=== PATIENT | male | born 1955 | race Caucasian/White ===

== ENCOUNTER 2018-06-30 05:22 | Day surgery (SDC) | payer OTHER ==
[~2018-06-30] VITALS: Ht 180.3 cm; Wt 85.0 kg
--- NOTE | ~2018-06-30 | HP ---
PATIENT: JEREMIE GALLARDO MEDICAL RECORD: [id number] ACCOUNT: [id number] LOCATION:[facility] : 59 ADMISSION DATE: 06/30/18 HISTORY AND PHYSICAL EXAMINATION CHIEF COMPLAINT: Garcia esophagus. HISTORY OF PRESENT ILLNESS: The patient is here for surveillance upper endoscopy. Because of his extensive medical history, his EGD is going to be done in the hospital. 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 He also has reflux. He states his reflux is not as bad as it was before now that he is taking omeprazole. He last took his Plavix yesterday morning. SOCIAL HISTORY: Ex-smoker. PAST MEDICAL AND SURGICAL HISTORY: He has got internal defibrillator, coronary artery disease, hypertension, angina, history of multiple myocardial infarctions, history of coronary syndrome, gastroesophageal reflux, Garcia esophagus, history of a partial left nephrectomy. PHYSICAL EXAMINATION: GENERAL: The patient does not appear acutely ill. He does not appear chronically ill. VITAL SIGNS: Reviewed. EARS: External ears appear normal. EYES: Extraocular movements are intact. NECK: Trachea is midline. CHEST: No intercostal retractions. PULMONARY: Nonlabored. No stridor. ABDOMEN: No peritonitis with movement. IMPRESSION: 1. Gastroesophageal reflux. 2. History of Garcia esophagus, in need of surveillance upper endoscopy with biopsies. PLAN: EGD with biopsies. TRANSINT:[id number] Voice Confirmation ID: [id number] DOCUMENT ID: [id number] KASEY CARBAJAL MD at 1241 CC: [id number] DICTATION DATE: 06/30/18929 FISCAL AGENT: 06/30/18 1116 [facility] 06/30/18 [address] [place] [address]
--- NOTE | ~2018-06-30 | OP ---
PATIENT NAME: JEREMIE GALLARDO MEDICAL RECORD: [id number] :59 LOCATION:D[facility] ADMISSION DATE: SURGEON: KASEY CARBAJAL MD DATE OF OPERATION: 06/30/2018 PREOPERATIVE DIAGNOSES: 1. History of Garcia esophagus. 2. Gastroesophageal reflux. POSTOPERATIVE DIAGNOSES: 1. History of Garcia esophagus 2. Gastroesophageal reflux. 3. Moderate hiatal hernia. 4. Perhaps some regression in the Garcia esophagus. 5. Gastritis in the fundus and the prepyloric area. SURGEON: Kasey Carbajal MD ZINC CHLORIDE OPERATOR: None. BLOOD LOSS: Minimal. ANESTHESIA: Topical with IV sedation. COMPLICATIONS: None. The reason for the anesthesia staff being present during the procedure includes the patient's elevated ASA status. ENDOSCOPIC COURSE: The patient was conveyed to the endoscopy suite electively on 06/30/2018. IV sedation was induced by the anesthesia staff. A bite block was inserted. A gastroscope was inserted into the mouth. It was advanced easily into the hypopharynx. The esophagus was easily intubated as were the stomach and duodenum. Upon withdrawal, retroflexed and angulus views were obtained. Antral biopsies were obtained. Multiple distal esophageal biopsies were obtained. The endoscope was then withdrawn under direct vision. There is no need for the patient to follow up with me in the office unless he develops a complication related to this operative procedure. He may have some mild hematemesis as he did not have his Plavix discontinued. I will plan for his next surveillance upper endoscopy with biopsies to take place in 2 years. TRANSINT:[id number] Voice Confirmation ID: [id number] DOCUMENT ID: [id number] KASEY CARBAJAL MD at 1240 CC: MARTIN SERNA MD, TIM BANKS MD, GLENN TERAN MD [id number] COLIN CORLEY DICTATION DATE: 06/30/18 1011 INNER TUBE TUBER MACHINE OPERATOR: 06/30/18 1051 [facility] 06/30/[address] [address]
[2018-06-30] MEDS ORDERED: BAYER CHEWABLE81 MG PO (07:10)
[2018-06-30] MEDS ORDERED: PLAVIX75 MG PO (07:10)
[2018-06-30] MEDS ORDERED: PACERONE200 MG PO (07:10)
[2018-06-30] MEDS ORDERED: PEPCID20 MG PO (07:11)
[2018-06-30] MEDS ORDERED: LASIX40 MG PO (07:11)
[2018-06-30] MEDS ORDERED: ZESTRIL10 MG PO (07:11)
[2018-06-30] MEDS ORDERED: LOPRESSOR25 MG PO (07:12)
[2018-06-30] MEDS ORDERED: OMEPRAZOLE40 MG PO (07:13)
[2018-06-30] MEDS ORDERED: ZOCOR10 MG PO (07:13)
[2018-06-30] MEDS ORDERED: NITROQUICK0.4 MG SL (07:13)
[2018-06-30 07:20] LABS: HEMATOCRIT 43.6 % (42.0-54.0); HEMOGLOBIN 14.5 g/dL (13.5-17.5); MCH 32.5 pg (26.0-34.0); MCHC 33.3 g/dL (31.0-37.0); MCV 97.8 fL (80.0-100.0); MEAN PLATELET VOLUME 10.9 fL (7.4-10.4); RBC 4.46 10x6/uL (4.20-6.10); RDW 13.8 % (11.5-14.5); WBC 7.9 10x3/uL (4.8-10.8)
[2018-06-30 07:21] VITALS: BP 122/82; Ht 180.3 cm; Wt 85.0 kg
== END 2018-06-30 11:07 | disposition home or self-care (01) ==
LOC: D.OPS 05:22
PROVIDERS: Anesthesiology
DX: K22.70 Barrett's esophagus without dysplasia (principal); K44.9 Diaphragmatic hernia without obstruction or gangrene; K21.9 Gastro-esophageal reflux disease without esophagitis; K29.70 Gastritis, unspecified, without bleeding; Z87.891 Personal history of nicotine dependence; Z95.810 Presence of automatic (implantable) cardiac defibrillator; I25.10 Atherosclerotic heart disease of native coronary artery without angina pectoris; I10 Essential (primary) hypertension; I25.2 Old myocardial infarction; Z79.02 Long term (current) use of antithrombotics/antiplatelets; Z90.5 Acquired absence of kidney; Z01.812 Encounter for preprocedural laboratory examination

== ENCOUNTER 2020-01-15 19:16 | Inpatient (IN) | payer MEDICAID ==
[2020-01-15] VITALS (8 sets, daily range): BP systolic 96–123; BP diastolic 43–77
[~2020-01-15] VITALS: Ht 180.3 cm; Wt 83.0 kg
--- NOTE | ~2020-01-15 | OP ---
PATIENT NAME: JEREMIE GALLARDO MEDICAL RECORD: [id number] :59 LOCATION:D.M2 D.0 ADMISSION DATE:01/15/20 SURGEON: GLENN STOLL MD DATE OF OPERATION: 01/17/2020 PROCEDURES: 1. PTCA stent left circumflex. 2. PTCA stent LAD. 3. IFR. 4. Selective coronary angiography. INDICATION: Angina and coronary artery disease. PROCEDURE PERFORMED: After informed consent was obtained, detailed explanation of risks, benefits as well as alternative therapies, the patient elected to proceed with angiogram and angioplasty. The right femoral area was prepped and draped in normal sterile fashion. Right femoral artery was cannulated via modified Seldinger technique with placement of 6-Turkish sheath. All catheters exchanged through this sheath. FINDINGS: The left anterior descending has a 70% stenosis after the previously placed stents. IFR is abnormal. There is a stent with a 3.5 x 8 mm Warren. Result was 0% residual stenosis. PTCA STENT OF THE LEFT CIRCUMFLEX ARTERY: There is 90% stenosis in the mid circumflex. It was addressed with a 2.5 x 15 mm Warren. Result was 0% residual stenosis. OVERALL IMPRESSION: Successful PTCA stent of the LAD and circumflex going from 75% to 90% initial stenosis to 0% residual. TRANSINT:[id number] Voice Confirmation ID: [id number] DOCUMENT ID: [id number] GLENN STOLL MD CC: [id number] DICTATION DATE: 01/17/20 1605 ADVERTISING MATERIAL DISTRIBUTOR: 01/18/20 0358 ADM IN [facility] [address] [place] [address]
--- NOTE | ~2020-01-15 | EC ---
PATIENT:JEREMIE GALLARDO DATE OF SERVICE: 01/15/20 SEX: M MEDICAL RECORD: [id number] DATE OF : 59 LOCATION:D.M2 D.212 AGE OF PATIENT: 64 ADMISSION DATE: 01/15/20 REFERRING PHYSICIAN: INTERPRETING PHYSICIAN: GLENN NAGEL MD ECHOCARDIOGRAM REPORT ECHO CHARGES 4 ECHO COMPLETE Date: 01/16/20 CLINICAL DIAGNOSIS: DCM ECHOCARDIOGRAPHIC MEASUREMENTS (adult normal given) AC root (d.<3.7cm) 3.5 cm LV Septum d (<1.2 cm> 1.2 cm Valve Excursion 2.0 cm LV Septum (systole) 1.5 cm Left Atria (s.<4.0cm> 4.2 cm LVPW d(<1.2cm) 1.1 cm RV (d.<2.3cm) 3.3 cm LVPW (sytole) 1.2 cm LV diastole(<5.6CM) 6.6 cm MV E-F(>70mm/sec) cm LV systole 5.9 cm LVOT Diameter 2.0 cm MV exc.(>10mm) cm Est.ejection fraction (50-75%) % DOPPLER: LVIT cm/sec A 68 cm/sec E 45 cm/sec LA cm/sec RVSP 23.6 mmHg LVOT 94 cm/sec AOP1/2T m/s Asc. Ao 105 cm/sec RVOT 67 cm/sec RA cm/sec PA 88 cm/sec AV Gradient Peak 4.4 mmHg AV Mean 2.5 mmHg AV Area 2.9 cm MV Gradient Peak 2.5 mmHg MV Mean 0.9 mmHg MV Area cm COMMENTS: Conservation Worker: Haile GHOSH Steward/Stewardess Banquet: 1 Dr. Nagel TAPE# PACS Pericardial Effusion N DATE OF SERVICE: ECHOCARDIOGRAM FINDINGS: 1. Left ventricular chamber size is mildly dilated. Left ventricular systolic function is mildly reduced at 40%. 2. Left atrium is enlarged at 4.2 cm. Right atrium and right ventricular chamber sizes are within normal limits. 3. Valvular structures have normal structure and motion. ECHOCARDIOGRAM REPORT [id number] JEREMIE GALLARDO 4. Doppler interrogation reveals no significant valvular insufficiency or stenosis. 5. No evidence of pericardial effusion or left ventricular thrombus. TRANSINT:[id number] Voice Confirmation ID: [id number] DOCUMENT ID: [id number] GLENN NAGEL MD CC: [id number] DICTATION DATE: 01/16/20 140 PATIENT FINANCIAL COORDINATOR: 01/16/20 1906 ADM IN [facility] [address] [id number]
--- NOTE | ~2020-01-15 | DS ---
PATIENT:JEREMIE GALLARDO :59 MEDICAL RECORD: [id number] DISCHARGE SUMMARY ADMISSION DATE: 01/15/20 DISCHARGE DATE: 01/18/20 DATE OF DISCHARGE: 01/18/2020 DIAGNOSES: 1. Unstable angina. 2. Coronary artery disease. 3. Percutaneous transluminal coronary angioplasty stent right coronary artery, left anterior descending, and left circumflex this admission. 4. Ischemic cardiomyopathy. 5. Ventricular tachycardia. 6. ICD. 7. Hypertension. 8. Hyperlipidemia. HOSPITAL COURSE: Mr. Gallardo presents with unstable anginal symptomatology, found to have 3-vessel coronary artery disease, underwent successful PTCA stent of all 3 vessels, was discharged home with no change in medication as he is already on Plavix and Coumadin. Will follow up with [facility] Cardiology as previously scheduled. TRANSINT:[id number] Voice Confirmation ID: [id number] DOCUMENT ID: [id number] GLENN STOLL MD CC: [id number] DICTATION DATE: 01/18/20 0948 LOG SORTING SUPERVISOR: 01/19/20 0514 DIS IN 01/18/20 [id number] [place] [address]
--- NOTE | ~2020-01-15 | HEMODYNAMI ---
PATIENT:JEREMIE GALLARDO MEDICAL RECORD: [id number] : 59 LOCATION:[facility] D.2120 ADMISSION DATE: 01/15/20 Generatedon:01/17/202016:06 Patient name: JEREMIE GALLARDO Patient #: [id number] SSN: : Date of study: 01/17/2020 Page: Of Hemodynamic Procedure Report Patient Data Patient Demographics Procedure consent was obtained First Name: JEREMIE Gender: Male Last Name: : 1955 Patient #: [id number] Age: 64 year(s) Race: Additional ID: [id number] Contact details Address: [address] [place] [address] State: [place] City: [place] Zip code: [address] Past Medical History Allergies Allergen Reaction Date Comments Reported Other allergy 01/16/2020 Admission Admission Data Admission Date: 01/15/2020 Admission Time: 21:44 Arrival Date: 01/16/2020 Arrival Time: 0:00 Admit Source: Other Insurance Payor: Medicaid Room #: D.2120 [facility] #: [id number] Height (in.): 71 BSA: 2.03 (m2) Height (cm.): 180.34 BMI: 25.58 (kg/m2) Weight (lbs.): 183.38 Weight (kg.): 83.18 Lab Results Lab Result Date: 01/16/2020 Lab Result Time: 0:00 Biochemistry Name Units Result Min Max BUN mg/dl 28 --(----)-* 7 18 CK-MB ng/ml 5.4 --(----)-* 0 3.6 Creatinine mg/dl 2.3 --(----)-* 0.6 1.3 eGFR ml/min 31 *-(----)-- 90 120 NONAFRICAN Troponin l ng/ml 0.028 --(-*--)-- 0 0.06 CBC Name Units Result Min Max Hematocrit % 44.2 --(*---)-- 42 54 Hemoglobin g/dl 14.1 --(*---)-- 13.5 17.5 Procedure Procedure Types Cath Procedure Diagnostic Procedure FFR/IVUS FFR Initial Sedation Charges Moderate Sedation up to 15 minutes PCI Procedure Coronary Stent Coronary Stent Initial x2 Hemochron ACT Test Procedure Description Procedure Date Procedure Date: 01/17/2020 Procedure Start Time: 15:50 Procedure End Time: 16:03 Procedure Staff Name Function Tex Nagel MD Performing Physician Harika Munoz RT Monitor Radha Busch RT Scrub Angelina Mcdaniel RN Nurse Shira Martinez RN Deportation Officer Procedure Data Cath Procedure Fluoroscopy Diagnostic fluoroscopy Total fluoroscopy Time: 3.5 time: 3.5 min min Diagnostic fluoroscopy Total fluoroscopy dose: 444 dose: 444 mGy mGy Contrast Material Contrast Material Type Amount (ml) Isovue 300 48 Entry Location Entry Primary Successful Side Size Upsize Upsize Entry Closure Succes sful Closure Location (Fr) 1 (Fr) 2 (Fr) Remarks Device Remarks Femoral Right 6 Fr Exoseal artery Short Estimated blood loss: 10 ml Procedure Complications No complications Procedure Medications Medication Administration Route Dosage Oxygen etCO2 Nasal cannula 2 l/min Lidocaine 2% added to field 20 Heparin Flush Bag added to field 2 bags (1000units/500ml NS) 0.9% NaCl I.V. 100 ml/hr Versed I.V. 2 mg Fentanyl I.V. 100 mcg Versed I.V. 2 mg Fentanyl I.V. 100 mcg Heparin Bolus I.V. 4000 units Hemodynamics Rest BSA: 2.03 (m2) O2 Consumption: Estimated: 276.08 (ml/min) O2 Consumption indexed : Estimated:136 (ml/min/m) Pre Cath Intra NCS Post Cath Vital Signs Time Heart Resp SPO2 etCO2 NIBP (mmHg) Rhythm Pain Sedation Rate (ipm) (%) (mmHg) Status Level (bpm) 15:32:24 62 17 100 14.3 125/73(94) NSR 0 (11) 10(A) , No pain 15:36:36 70 18 100 0 126/80(109) NSR 0 (11) 10(A) , No pain 15:40:52 68 14 100 0 115/66(80) NSR 0 (11) 10(A) , No pain 15:45:04 66 16 100 0 116/69(81) NSR 0 (11) 10(A) , No pain 15:49:18 60 10 100 0 106/59(73) NSR 0 (11) 9(A) , No pain 15:53:30 62 16 98 0 104/56(74) NSR 0 (11) 9(A) , No pain 15:57:42 60 16 98 0 98/54(72) NSR 0 (11) 10(A) , No pain 16:01:53 60 8 98 0 102/48(81) NSR 0 (11) 10(A) , No pain Medications Time Medication Route Dose Verified Delivered Reason Notes Effectiveness by by 15:31:24 Oxygen etCO2 2 Tex Buffie used for Nasal l/min Robe Martinez RN procedure cannula 15:31:31 Lidocaine 2% added 20ml Tex Tex for local to vial Robe Nagel MD anesthetic field 15:31:38 Heparin Flush added 2 Tex Tex used for Bag to bags Robe Nagel MD procedure (1000units/500ml field NS) 15:31:51 0.9% NaCl I.V. 100 Tex Buffie Per physician ml/hr Robe Martinez RN 15:43:48 Versed I.V. 2 mg Tex Rafitaie for sedation Robe Martinez RN 15:43:53 Fentanyl I.V. 100 Tex Buffie for sedation mcg Robe Martinez RN 15:48:44 Versed I.V. 2 mg Tex Buffie for sedation Robe Martinez RN 15:48:48 Fentanyl I.V. 100 Tex Ellerie for sedation mcg Robe Martinez RN 15:50:25 Heparin Bolus I.V. 4000 Tex Angelina for verif ied units Robe Mcdaniel anticoagulation with Dr. ROBIN Nagel Procedure Log Time Note 15:13:26 Patient Height : 71 inches 15:13:26 Patient Weight : 183.38 lbs 15:13:30 Diagnostic Cath Status : Elective 15:14:11 ACC Patient presents with Unstable Angina CCS Anginal Class 2--Slight limitation of ordinary activity. 15:14:16 Procedure Status Urgent Heart Cath (IP). 15:14:22 Shira Martinez RN sent for patient. Start room use. 15:14:24 Time tracking: Regular hours (M-F 7:00 - 5:00) 15:16:03 Patient received from Med II to CCL 2 Alert and oriented. Tansferred to table in Supine position. 15:16:06 Signed procedure consent form obtained from patient. 15:16:14 H&P Date Dictated: 01/17/2020 Within 30 days and on chart.. 15:16:16 Pre-procedure instructions explained to patient. 15:16:30 Family in patients room. 15:16:32 Patient NPO since Midnight. 15:16:47 Was the patient premedicated? Yes 15:16:48 Is patient on blood thinner?Yes 15:16:51 ACC The patient was administered the following blood thiners within the last 24 hours: ACCPlavix 15:18:27 Patient diabetic? No. 15:18:29 Snore? Yes 15:18:31 Sleep apnea? No 15:18:37 Dentures? No ? 15:18:41 Patient pain scale 0/10 ?. 15:18:49 IV patent on arrival in left forearm with 0.9% NaCl at O. 15:18:57 Lab results completed and on chart. 15:19:03 Risk of Mortality: 2.5 15:19:07 Risk of blood transfusion: .1 15:19:11 Risk of DALTON: 3.6 15:31:12 Vital chart was started 15:31:24 Oxygen 2 l/min etCO2 Nasal cannula was administered by Shira Martinez RN; used for procedure; Verbal order read back and verified. 15:31:31 Lidocaine 2% 20ml vial added to field was administered by Tex Nagel MD; for local anesthetic; Verbal order read back and verified. 15:31:38 Heparin Flush Bag (1000units/500ml NS) 2 bags added to field was administered by Tex Nagel MD; used for procedure; Verbal order read back and verified. 15:31:51 0.9% NaCl 100 ml/hr I.V. was administered by Shira Martinez RN; Per physician; Verbal order read back and verified. 15:35:19 Right groin area was prepped with chlora-prep and draped in sterile fashion 15:35:19 Alarms reviewed by R. N. 15:35:23 Sharps counted by scrub and verified by R.N. 15:42:05 Physician arrived 15:42:06 --------ALL STOP TIME OUT------ 15:42:07 Final Timeout: patient, procedure, and site verified with staff and physician. All members of the team are in agreement. 15:42:11 Right groin site verified by team. 15:42:16 Fire Safety Assessment: A--An alcohol-based skin anteseptic being used preoperatively., C--Open oxygen or nitrous oxide is being used., D--An ESU, laser, or fiber-optic light is being used. 15:42:20 Physical assessment completed. ASA score P 3 - A patient with severe systemic disease as per Tex Nagel MD. 15:42:25 3b) 30-44 Moderately reduced kidney function. 15:42:35 Maximum allowable contrast dose (3.7 X eGFR X 0.75)81 ml. 15:42:40 Sedation plan: IV Moderate Sedation Medication:Versed, Fentanyl 15:42:46 Use device set Femoral Dx 15:42:47 ACIST Syringe (12432) opened to sterile field. 15:42:48 Bag Decanter (2002S) opened to sterile field. 15:42:49 Medline Cath Pack ([id number]) opened to sterile field. 15:42:50 ACIST Hand Control (90750) opened to sterile field. 15:42:51 ACIST Manifold (27190) opened to sterile field. 15:42:56 EMERALD Guide Wire (051-525) opened to sterile field. 15:43:48 Versed 2 mg I.V. was administered by Shira Martinez RN; for sedation; Verbal order read back and verified. 15:43:53 Fentanyl 100 mcg I.V. was administered by Shira Martinez RN; for sedation; Verbal order read back and verified. 15:46:34 INFLATOR Merit BasixCompak (ET5866) opened to sterile field. 15:46:35 Ocilla Verrata Plus pressure wire (52532B) opened to sterile field. 15:46:36 SHEATH 6FR [place] (MNJ590) opened to sterile field. 15:46:46 GUIDE 6FR XBLAD 4.0 catheter ([id number]) opened to sterile field. 15:48:44 Versed 2 mg I.V. was administered by Shira Martinez RN; for sedation; Verbal order read back and verified. 15:48:48 Fentanyl 100 mcg I.V. was administered by Shira Martinez RN; for sedation; Verbal order read back and verified. 15:50:07 Procedure started. 15:50:07 Full Disclosure recording started 15:50:10 Local anesthetic to right femoral artery with Lidocaine 2% by Tex Nagel MD.INITIAL ACCESS ONLY 15:50:19 A 6 Fr Short sheath was inserted into the Right Femoral artery 15:50:25 Heparin Bolus 4000 units I.V. was administered by Angelina Mcdaniel RN; for anticoagulation; verified with Dr. Nagel Verbal order read back and verified. 15:50:45 6 Fr xblad4 guide catheter was inserted over the wire 15:51:01 FFR/IFR wire advanced. 15:51:41 Zero performed for pressure channel P1 15:51:49 Zero performed for pressure channel P1 15:54:34 Wire advanced across lesion. 15:54:42 mLAD lesion measured at .83 with IFR 15:55:01 Pre PCI Site: [place] mLAD has 75% stenosis. 15:55:57 Place stent Inflation Number: 1 A NORBERT RX 3.5 x 08 stent ([id number]) was prepped and advanced across the Mid LAD 75. The stent was deployed at 13 KARO for 0:01 (min:sec) 0. 15:56:42 Wire removed. 15:56:53 Wire redirected to CX. 15:58:04 Pre PCI Site: [place] mCirc has 90% stenosis. 15:59:06 Place stent Inflation Number: 1 A NORBERT RX 2.5 x 15 stent ([id number]) was prepped and advanced across the Mid CX 90. The stent was deployed at 17 KARO for 0:06 (min:sec) 0. 15:59:26 EXOSEAL 6Fr (EX600) opened to sterile field. 15:59:32 Wire removed. 15:59:33 Guide catheter removed. 15:59:46 Sheath removed intact; hemostasis achieved with Exoseal to the Right Femoral artery. 15:59:49 Procedure ended.(Physican Out) 16:00:22 Fluoroscopy time 03.50 minutes. 16:00:26 Fluoroscopy dose: 444 mGy 16:00:26 Flurop Dose total: 444 16:00:30 Dose Area Product 60237 mGy/cm. 16:00:35 Contrast amount:Isovue 300 48ml. 16:00:38 Maximum allowable dose exceeded? No. 16:00:38 Sharps counted by scrub and verified by R.N. 16:00:45 Insertion/operative site no bleeding no hematoma. 16:00:48 Post right femoral artery:stable 16:00:52 Post Procedure Pulses reassessed and unchanged 16:00:55 Post-procedure physical assessment completed. ASA score P 3 - A patient with severe systemic disease as per Tex Nagel MD. 16:00:58 Post procedure rhythm: unchanged. 16:01:01 Estimated blood loss: 10 ml 16:01:02 Post procedure instruction explained to patient.Patient verbalizes understanding. 16:02:43 Procedure type changed to Cath procedure, Diagnostic procedure, FFR/IVUS, FFR Initial, Sedation Charges, Moderate Sedation up to 15 minutes, PCI procedure, Coronary Stent, Coronary Stent Initial x2, Hemochron ACT Test 16:02:45 Procedure and supply charges have been captured, reviewed, submitted and are correct. 16:03:21 ACT drawn and resulted at 295 seconds. (normal therapeutic range 180-240 seconds). 16:03:33 Procedure Complication : No complications 16:03:36 Vital chart was stopped 16:03:40 [facility] Findings: MVD- PCI performed (see procedure note) 16:03:42 Operative report dictated upon procedure completion. 16:03:43 See physician's report for complete and final results. 16:03:47 Report given to Pre/Post Procedure Room. 16:03:52 Patient transfered to [facility] with Bed. 16:03:54 Procedure ended. 16:03:54 Full Disclosure recording stopped 16:04:00 End room use (Document Last) 16:04:05 ACC-PCI Only Patient was given prescriptions, or instructed by Tex Nagel MD to start/continue the following medications upon discharge: Plavix Intervention Summary Intervention Notes Time ActionType Lesion and Equipment Used Action# Pressure Duration Attributes 15:55:57 Place stent Mid LAD NORBERT RX 3.5 x 1 13 00:01 08 stent ([id number]) 15:59:06 Place stent Mid CX NORBERT RX 2.5 x 1 17 00:07 15 stent ([id number]) Device Usage Item Name Manufacture Quantity Catalog Hospital Part Current Minimal Lot# / Number Charge Number Stock Stock Serial# Code ACIST Syringe Acist 1 57384 539567 498426 [id number] 20 (98380) Medical Systems Inc Bag Decanter Microtek 1 448206 12318 988532 5 () Medical Inc. Medline Cath Medline 1 [id number] 394741 16749 573301 5 Pack ([id number]) ACIST Hand Acist 1 39964 412297 707941 309194 5 Control Medical (20524) Systems Inc ACIST Manifold Acist 1 19021 605610 135954 927868 5 (62812) Medical Systems Inc EMERALD Guide Cardinal 1 502455 675682 163746 533533 5 Wire (502455) Health INFLATOR Merit Merit 1 PJ9418 699824 961792 466188 15 SnapSense (TG0029) Ocilla Ocilla 1 20298U 199419 260274481 783375 5 Verrata Plus pressure wire (37433Q) SHEATH 6FR Terumo 1 VDX949 156123 765531 809438 40 [place] (CBA916) GUIDE 6FR Cardinal 1 [id number] 060477 527896 039693 3 XBLAD 4.0 Health catheter ([id number]) NORBERT RX 3.5 x Medtronic 1 [id number] 733501 6432406 086287 5 [id number] 08 stent ([id number]) NORBERT RX 2.5 x Medtronic 1 [id number] 423156 0090107 175828 5 [id number] 15 stent ([id number]) EXOSEAL 6Fr Cardinal 1 EX600 334553 819974 287309 10 (EX600) Health Signature Audit [place] Stage Time Signature Unsigned Intra-Procedure 01/17/2020 Harika Munoz 4:04:29 PM RT(R) Intra-Procedure 01/17/2020 Angelina Mcdaniel 4:05:38 PM RN Intra-Procedure 01/17/2020 Tex Nagel 4:06:07 PM Signatures Performing Physician : Signature : Tex Nagel MD Date : Time : Monitor : Harika Alexander Signature : RT Date : Time : Nurse : Angelina Mcdaniel RN Signature : Date : Time : [address] [place] [address]
--- NOTE | ~2020-01-15 | HEMODYNAMI ---
PATIENT:JEREMIE GALLARDO MEDICAL RECORD: [id number] : 59 LOCATION:[facility] D.2120 ADMISSION DATE: 01/15/20 Generatedon:01/16/202015:44 Patient name: JEREMIE GALLARDO Patient #: [id number] SSN: : Date of study: 01/16/2020 Page: Of Hemodynamic Procedure Report Patient Data Patient Demographics Procedure consent was obtained First Name: JEREMIE Gender: Male Last Name: : 1955 Patient #: [id number] Age: 64 year(s) Race: Additional ID: [id number] Contact details [address]: [address] [place] [address] State: [place] City: [place] Zip code: [address] Past Medical History Allergies Allergen Reaction Date Comments Reported Other allergy 01/16/2020 Admission Admission Data Admission Date: 01/15/2020 Admission Time: 21:44 Arrival Date: 01/16/2020 Arrival Time: 0:00 Admit Source: Other Insurance Payor: Medicaid Room #: D.2120 [facility] #: [id number] Height (in.): 71 BSA: 2.03 (m2) Height (cm.): 180.34 BMI: 25.58 (kg/m2) Weight (lbs.): 183.38 Weight (kg.): 83.18 Lab Results Lab Result Date: 01/16/2020 Lab Result Time: 0:00 Biochemistry Name Units Result Min Max BUN mg/dl 28 --(----)-* 7 18 CK-MB ng/ml 5.4 --(----)-* 0 3.6 Creatinine mg/dl 2.3 --(----)-* 0.6 1.3 eGFR ml/min 31 *-(----)-- 90 120 NONAFRICAN Troponin l ng/ml 0.028 --(-*--)-- 0 0.06 CBC Name Units Result Min Max Hematocrit % 44.2 --(*---)-- 42 54 Hemoglobin g/dl 14.1 --(*---)-- 13.5 17.5 Procedure Procedure Types Cath Procedure Diagnostic Procedure [facility] w/Coronaries FFR/IVUS FFR Initial Sedation Charges Moderate Sedation up to 15 minutes PCI Procedure Coronary Stent Coronary Stent Initial Hemochron ACT Test Procedure Description Procedure Date Procedure Date: 01/16/2020 Procedure Start Time: 15:24 Procedure End Time: 15:43 Procedure Staff Name Function Tex Nagel MD Performing Physician Mercedes Chand RT Monitor Aida Skinner RT Scrub Shira Martinez RN Nurse Indication Chest pain Procedure Data Cath Procedure Fluoroscopy Diagnostic fluoroscopy Total fluoroscopy Time: 4 time: 4 min min Diagnostic fluoroscopy Total fluoroscopy dose: 536 dose: 536 mGy mGy Contrast Material Contrast Material Type Amount (ml) Isovue 370 65 Entry Location Entry Primary Successful Side Size Upsize Upsize Entry Closure Succes sful Closure Location (Fr) 1 (Fr) 2 (Fr) Remarks Device Remarks Femoral Right 6 Fr Exoseal artery Short Estimated blood loss: 10 ml Diagnostic catheters Device Type Used For End Catheter Placement MULTIPACK Pigtail 5 Fr Procedure catheter MULTIPACK JL 4.0 5Fr Procedure catheter MULTIPACK 3DRC 5Fr Procedure catheter Procedure Complications No complications Procedure Medications Medication Administration Route Dosage Oxygen etCO2 Nasal cannula 2 l/min Lidocaine 2% added to field 20 Heparin Flush Bag added to field 2 bags (1000units/500ml NS) 0.9% NaCl I.V. 50 ml/hr Bumex 0.5 mg/hr Plavix P.O. 75 mg Versed I.V. 1 mg Fentanyl I.V. 50 mcg Versed I.V. 1 mg Fentanyl I.V. 50 mcg Heparin Bolus I.V. 4000 units Bumex 0.5 mg/hr Hemodynamics Rest BSA: 2.03 (m2) HGB: 14.1 (g/dl) O2 Consumption: Estimated: 236.78 (ml/min) O2 Co nsumption indexed: Estimated:116.64 (ml/min/m) Heart Rate: 69 (bpm) Snapshots Pre Cath Intra NCS Post Cath Vital Signs Time Heart Resp SPO2 etCO2 NIBP (mmHg) Rhythm Pain Sedation Rate (ipm) (%) (mmHg) Status Level (bpm) 15:11:44 67 18 94 0 114/71(106) NSR 0 (11) 10(A) , No pain 15:15:56 64 19 91 11.3 108/62(79) NSR 0 (11) 10(A) , No pain 15:20:12 65 14 94 8.3 99/49(70) NSR 0 (11) 10(A) , No pain 15:24:22 62 11 96 9.8 91/54(68) NSR 0 (11) 9(A) , No pain 15:28:32 62 13 96 12.1 92/52(68) NSR 0 (11) 9(A) , No pain 15:32:44 60 12 97 25.7 99/47(77) NSR 0 (11) 9(A) , No pain 15:37:00 63 13 95 24.2 90/44(65) NSR 0 (11) 9(A) , No pain 15:41:12 63 13 95 27.9 85/44(63) NSR 0 (11) 10(A) , No pain Medications Time Medication Route Dose Verified Delivered Reason Note s Effectiveness by by 15:14:26 Oxygen etCO2 2 Tex Buffie used for Nasal l/min Robe Martinez RN procedure cannula 15:14:33 Lidocaine 2% added to 20ml Tex Tex for local field vial Robe Nagel MD anesthetic 15:14:42 Heparin Flush added to 2 Etx Tex used for Bag field bags Robe Nagel MD procedure (1000units/500ml NS) 15:14:52 Bumex I.V.P.B. 0.5 Tex Buffie Per physician from med mg/hr Robe Martinez RN floor infusing 15:14:52 0.9% NaCl I.V. 50 Tex Buffie Per physician ml/hr Robe Martinez RN 15:15:22 Plavix P.O. 75 mg Tex Buffie for Robe Martinez RN antiplatelet therapy 15:20:42 Versed I.V. 1 mg Tex Buffie for sedation Robe Martinez RN 15:20:47 Fentanyl I.V. 50 Tex Buffie for sedation mcg Robe Martinez RN 15:29:40 Versed I.V. 1 mg Tex Buffie for sedation Robe Martinez RN 15:29:43 Fentanyl I.V. 50 Tex Buffie for sedation mcg Robe Martinez RN 15:32:06 Heparin Bolus I.V. 4000 Tex Silva for units Robe Martinez RN anticoagulation 15:34:21 Bumex I.V.P.B. 0.5 Tex Silva Per physician disc ontinued mg/hr Robe Martinez RN per dr nagel. Procedure Log Time Note 14:57:29 Shira Martinez RN sent for patient. Start room use. 14:58:51 Informed consent obtained and on chart 14:59:11 Diagnostic Cath Status : Urgent 14:59:24 Admit Source: Other 14:59:27 Procedure Status Urgent Heart Cath (IP). 14:59:31 Time tracking: Call back (After hours or weekends) 14:59:35 Plan of Care:Hemodynamics will remain stable., Cardiac rhythm will remain stable., Comfort level will be maintained., Respiratory function will remain adequate., Patient/ family verbilizes understanding of procedure., Procedure tolerated without complication., Recovers from procedure without complications.. 15:01:50 Indication : Chest pain 15:01:58 Patient received from Med II to CCL 1 Alert and oriented. Tansferred to table in Supine position. 15:01:59 Warm blankets applied, and joe hugger turned on for patient comfort. 15:01:59 Correct patient and procedure confirmed by team. 15:02:00 ECG and BP/O2 sat monitors applied to patient. 15:02:14 H&P Date Dictated: 01/15/2020 Within 30 days and on chart.. 15:02:17 Pre-procedure instructions explained to patient. 15:02:18 Pre-procedure instructions explained to patient. 15:02:20 Pre-op teaching completed and patient verbalized understanding. 15:02:34 Family unavailable. 15:02:45 Patient NPO since Midnight. 15:02:55 Patient allergic to Other allergy 15:02:58 Is the patient allergic to Iodine/contrast media? No. 15:03:01 Was the patient premedicated? No 15:03:32 Is patient on blood thinner?No 15:03:37 ACC The patient was administered the following blood thiners within the last 24 hours: ACCPlavix 15:03:40 Patient diabetic? No. 15:03:43 If diabetic: On Metformin? N/A 15:03:49 ----Pre-sedation anethsthesia assessment.---- 15:03:52 Previous problem with sedation/anesthesia? No ? 15:03:54 Snore? Yes 15:03:55 Sleep apnea? No 15:03:57 Deviated septum? No 15:03:58 Opens mouth fully? Yes 15:03:59 Sticks out tongue? Yes 15:04:13 Airway obstruction? Yes fluid on lungs 15:04:22 Dentures? No ? 15:04:27 Patient pain scale 0/10 ?. 15:09:25 Risk of Mortality: 2.5 15::28 Risk of blood transfusion: .1 15::31 Risk of DALTON: 3.6 15::34 Right groin area was prepped with chlora-prep and draped in sterile fashion 15::35 Alarms reviewed by R. N. 15::35 Sharps counted by scrub and verified by R.N. 15:09:39 Stress Test: no; N/A ? 15::41 Lab results completed and on chart. 15:10:24 Lab Result : BUN 28 mg/dl 15::24 Lab Result : Creatinine 2.3 mg/dl 15:10:24 Lab Result : CK-MB 5.4 ng/ml 15:10:24 Lab Result : Troponin l 0.028 ng/ml 15:10:24 Lab Result : eGFR NONAFRICAN 31 ml/min 15:10:24 Lab Result : Hemoglobin 14.1 g/dl 15:10:24 Lab Result : Hematocrit 44.2 % 15:10:29 Vital chart was started 15:10:30 Baseline sample Acquired. 15:: Full Disclosure recording started 15:10:35 Rhythm: sinus rhythm 15:10:45 IV patent on arrival in left antecubital with 0.9% NaCl at [facility]. 15:14:26 Oxygen 2 l/min etCO2 Nasal cannula was administered by Shira Martinez RN; used for procedure; Verbal order read back and verified. 15:14:33 Lidocaine 2% 20ml vial added to field was administered by Tex Nagel MD; for local anesthetic; Verbal order read back and verified. 15:14:42 Heparin Flush Bag (1000units/500ml NS) 2 bags added to field was administered by Tex Nagel MD; used for procedure; Verbal order read back and verified. 15:14:52 Bumex 0.5 mg/hr I.V.P.B. was administered by Shira Martinez RN; Per physician; from [facility] floor infusing Verbal order read back and verified. 15:14:52 0.9% NaCl 50 ml/hr I.V. was administered by Shira Martinez RN; Per physician; Verbal order read back and verified. 15:15:22 Plavix 75 mg P.O. was administered by Shira Martinez RN; for antiplatelet therapy; Verbal order read back and verified. 15:16:22 Arrival Date: 01/16/2020 12:00:00 AM 15:16:31 Patient Height : 71 inches 15:16:36 Patient Weight : 183.38 lbs 15:16:50 Insurance Payor : Medicaid 15:17:06 --------ALL STOP TIME OUT------ 15:17:06 Final Timeout: patient, procedure, and site verified with staff and physician. All members of the team are in agreement. 15:17:08 Right groin site verified by team. 15:17:12 Fire Safety Assessment: A--An alcohol-based skin anteseptic being used preoperatively., C--Open oxygen or nitrous oxide is being used., D--An ESU, laser, or fiber-optic light is being used. 15:17:16 Physical assessment completed. ASA score P 2 - A patient with mild systemic disease as per Tex Nagel MD. 15:17:21 3b) 30-44 Moderately reduced kidney function. 15:17:44 Maximum allowable contrast dose (3.7 X eGFR X 0.75)86 ml. 15:17:49 Sedation plan: IV Moderate Sedation Medication:Versed, Fentanyl 15:18:59 Use device set Femoral Dx 15:19:00 ACIST Syringe (99979) opened to sterile field. 15:19:01 Bag Decanter (2002) opened to sterile field. 15:19:02 Medline Cath Pack ([id number]) opened to sterile field. 15:19:04 ACIST Hand Control (73278) opened to sterile field. 15:19:04 ACIST Manifold (09518) opened to sterile field. 15:19:05 DIAGNOSTIC Multipack 5Fr catheter set (BC3185) opened to sterile field. 15:19:07 EMERALD Guide Wire (989-017) opened to sterile field. 15:19:17 SHEATH 6FR [place] (RJF934) opened to sterile field. 15:20:42 Versed 1 mg I.V. was administered by Shira Martinez RN; for sedation; Verbal order read back and verified. 15:20:47 Fentanyl 50 mcg I.V. was administered by Shira Martinez RN; for sedation; Verbal order read back and verified. 15:24:31 Procedure started. 15:24:35 Local anesthetic to right femoral artery with Lidocaine 2% by Tex Nagel MD.INITIAL ACCESS ONLY 15:25:17 A 6 Fr Short sheath was inserted into the Right Femoral artery 15:26:04 A MULTIPACK Pigtail 5 Fr catheter was advanced over the wire and used for Procedure. 15:26:08 LV gram done using VÁSQUEZ 15:26:13 EF : 40 % 15:26:16 Injector settings: Ml/sec: 5, Volume: 15, 15:26:17 Catheter removed. 15:26:23 A MULTIPACK JL 4.0 5Fr catheter was advanced over the wire and used for Procedure. 15:26:38 LCA angiography performed. 15::42 Injector settings: Ml/sec: 3, Volume: 6, 15:27:12 Catheter removed. 15:27:23 A MULTIPACK 3DRC 5Fr catheter was advanced over the wire and used for Procedure. 15:27:28 RCA angiography performed. 15:27:31 Injector settings: Ml/sec: 3, Volume: 6, 15:27:56 Catheter removed. 15:27:57 Proceeding to intervention. 15:28:03 Use device set TAUFAN PCI 15:28:08 INFLATOR Merit BasixCompak (YR3617) opened to sterile field. 15:28:51 [place] Verrata Plus pressure wire (30745U) opened to sterile field. 15:29:20 GUIDE 6FR AR 2.0 catheter ([id number]) opened to sterile field. 15:29:40 Versed 1 mg I.V. was administered by Shira Martinez RN; for sedation; Verbal order read back and verified. 15:29:43 Fentanyl 50 mcg I.V. was administered by Shira Martinez RN; for sedation; Verbal order read back and verified. 15:29:54 6 Fr AR 2 guide catheter was inserted over the wire 15:29:58 FFR/IFR wire advanced. 15:29:58 Wire advanced across lesion. 15:32:06 Heparin Bolus 4000 units I.V. was administered by Shira Martinez RN; for anticoagulation; Verbal order read back and verified. 15:32:41 RCA lesion measured at .79 with IFR 15:33:20 Pre PCI Site: [place] RCA has 80% stenosis. 15:34:21 Bumex 0.5 mg/hr I.V.P.B. was administered by Shira Martinez RN; Per physician; discontinued per dr nagel. Verbal order read back and verified. 15:34:39 Place stent Inflation Number: 1 A NORBERT RX 3.5 x 38 stent ([id number]) was prepped and advanced across the Mid RCA . The stent was deployed at 21 KARO for 0:00 (min:sec) . 15:34:51 Inflation number: 2 The stent balloon was then re-inflated across the Mid RCA to 17 KARO for 0:00 (min:sec) . 15:35:28 Stent catheter was removed intact over wire. 15:37:14 Place stent Inflation Number: 1 A NORBERT RX 3.5 x 22 stent ([id number]) was prepped and advanced across the Dist RCA . The stent was deployed at 21 KARO for 0:00 (min:sec) . 15:37:55 EXOSEAL 6Fr (EX600) opened to sterile field. 15:38:05 Sheath removed intact; hemostasis achieved with Exoseal to the Right Femoral artery. 15:38:11 Fluoroscopy time 04.00 minutes. 15:38:16 Fluoroscopy dose: 536 mGy 15:38:16 Flurop Dose total: 536 15:38:21 Dose Area Product 91796 mGy/cm. 15:38:23 Procedure ended.(Physican Out) 15:38:51 Contrast amount:Isovue 370 65ml. 15:38:53 Maximum allowable dose exceeded? No. 15:38:54 Sharps counted by scrub and verified by R.N. 15:38:59 Post-op/insertion site Right Femoral artery dressed using a 4 x 4 and Tegaderm. 15:39:06 Post right femoral artery:stable, soft, clean and dry 15:39:07 Post Procedure Pulses reassessed and unchanged 15:39:11 Post procedure: right dorsailis pedis pulse 2+ Normal; easily identifiable; not easily obliterated. 15:39:14 Post-procedure physical assessment completed. ASA score P 2 - A patient with mild systemic disease as per Tex Nagel MD. 15:39:17 Post procedure rhythm: unchanged. 15:39:20 Estimated blood loss: 10 ml 15:39:22 Post procedure instruction explained to patient.Patient verbalizes understanding. 15:39:22 Patient needs reinforcement of post procedure teaching. 15:41:31 Procedure type changed to Cath procedure, Diagnostic procedure, LHC, [facility] w/Coronaries, FFR/IVUS, FFR Initial, Sedation Charges, Moderate Sedation up to 15 minutes, PCI procedure, Coronary Stent, Coronary Stent Initial, Hemochron ACT Test 15:43:15 ACT drawn and resulted at 342 seconds. (normal therapeutic range 180-240 seconds). 15:43:19 Procedure and supply charges have been captured, reviewed, submitted and are correct. 15:43:23 Procedure Complication : No complications 15:43:25 Vital chart was stopped 15:43:27 [facility] Findings: MVD- PCI performed (see procedure note) 15:43:28 Operative report dictated upon procedure completion. 15:43:29 See physician's report for complete and final results. 15:43:31 Report given to [facility]. 15:43:35 Patient transfered to [facility] with Bed. 15:43:44 Procedure ended. 15:43:44 Full Disclosure recording stopped 15:43:52 ACC-PCI Only Patient was given prescriptions, or instructed by Tex Nagel MD to start/continue the following medications upon discharge: Plavix 15:43:54 End room use (Document Last) 15:44:10 End room use (Document Last) 15:44:27 End room use (Document Last) Intervention Summary Intervention Notes Time ActionType Lesion and Equipment Used Action# Pressure Duration Attributes 15:34:39 Place stent Mid RCA NORBERT RX 3.5 x 1 21 00:00 38 stent ([id number]) 15:34:51 Reinflate Mid RCA NORBERT RX 3.5 x 2 17 00:00 stent 38 stent balloon ([id number]) 15:37:14 Place stent Dist RCA NORBERT RX 3.5 x 1 21 00:00 22 stent ([id number]) Device Usage Item Name Manufacture Quantity Catalog Hospital Part Current Minimal Lot# / Number Charge Number Stock Stock Serial# Code ACIST Syringe Acist 1 40910 131695 270075 195678 20 (10669) Medical Systems Inc Bag Decanter Microtek 1 133679 28899 535208 5 () Medical Inc. Medline Cath Medline 1 [id number] 765204 09279 023252 5 Pack ([id number]) ACIST Hand Acist 1 02519 772947 342381 348420 5 Control Medical (02797) Systems Inc ACIST Manifold Acist 1 11303 302831 069448 341115 5 (50366) Medical Systems Inc DIAGNOSTIC Cardinal 1 XH0801 686210 02944 591704 30 Multipack 5Fr Health catheter set (JL4887) EMERALD Guide Cardinal 1 502-455 101016 921127 746488 5 Wire (502-455) Health SHEATH 6FR Terumo 1 DKY937 821124 148049 093420 40 [place] (BWG368) MULTIPACK Cardinal 1 019159 5 Pigtail 5 Fr Health catheter MULTIPACK JL Cardinal 1 042153 5 4.0 5Fr Health catheter MULTIPACK 3DRC Cardinal 1 178131 5 5Fr catheter Health INFLATOR Merit Merit 1 HV6843 042844 572800 524815 15 Double FusionLDS Hospital Medical (MJ6972) [place] 1 90900G 560644 083813188 507461 5 Verrata Plus pressure wire (61141M) GUIDE 6FR AR Medtronic 1 [id number] 472065 05398 064081 1 2.0 catheter (KA9SZ14) NORBERT RX 3.5 x Medtronic 1 [id number] 151549 5669148 968901 5 [id number] 38 stent ([id number]) NORBERT RX 3.5 x Medtronic 1 [id number] 805841 9081855 177336 5 [id number] 22 stent ([id number]) EXOSEAL 6Fr Cardinal 1 EX600 528997 225881 995635 10 (EX600) Health Signature Audit [place] Stage Time Signature Unsigned Intra-Procedure 01/16/2020 Mercedes Chand 3:44:10 PM RT(R) Intra-Procedure 01/16/2020 Shira Martinez RN 3:44:27 PM Intra-Procedure 01/16/2020 Tex Nagel 3:44:46 PM [facility] [address] [place] [address]
[~2020-01-15 19:16] MED LIST: BAYER CHEWABLE81 MG PO; LASIX40 MG PO; LOPRESSOR25 MG PO; NITROQUICK0.4 MG SL; OMEPRAZOLE40 MG PO; PACERONE200 MG PO; PEPCID20 MG PO; PLAVIX75 MG PO; ZESTRIL10 MG PO; ZOCOR10 MG PO
[2020-01-15] MEDS ORDERED: LIPITOR20 MG PO (19:33)
[2020-01-15] MEDS ORDERED: ACETAMINOPHEN325 MG PO (19:34)
[2020-01-15] MEDS ORDERED: COUMADIN2 MG PO (19:34)
[2020-01-15] MEDS ORDERED: FOLIC ACID1 MG PO (19:34)
[2020-01-15] MEDS ORDERED: CLARITIN 10 MG10 MG PO (19:35)
[2020-01-15 20:18] LABS: BASOPHILS 0.3 % (0-2); EOSINOPHILS 0.7 % (0-7); HEMATOCRIT 44.2 % (42.0-54.0); HEMOGLOBIN 14.1 g/dL (13.5-17.5); IMMATURE GRANULOCYTES 0.4 % (0-5); LYMPHOCYTES 14.8 % (15-50); MCH 32.4 pg (26.0-34.0); MCHC 31.9 g/dL (31.0-37.0); MCV 101.6 fL (80.0-100.0); MEAN PLATELET VOLUME 11.2 fL (7.4-10.4); NEUTROPHILS 73.8 % (40-80); PLATELET COUNT 179 10x3/uL (130-400); RBC 4.35 10x6/uL (4.20-6.10); RDW 14.2 % (11.5-14.5); WBC 11.5 10x3/uL (4.8-10.8)
[2020-01-15 20:27] LABS: APTT 31.5 SECONDS (22.8-39.4); INR 1.17 (0.85-1.17); PROTIME 14.9 SECONDS (11.6-15.0)
[2020-01-15 20:33] LABS: CALC OSMOLALITY 290 mosm/kg (275-300); CALCIUM 8.7 mg/dL (8.5-10.1); CARBON DIOXIDE 23.9 mmol/L (21.0-32.0); CHLORIDE - SERUM 109 mmol/L (98-107); CREATININE - SERUM 2.1 mg/dL (0.6-1.3); GLUCOSE 100 mg/dL (74-106); POTASSIUM - SERUM 5.7 mmol/L (3.5-5.1); SODIUM 143 mmol/L (136-145); UREA NITROGEN 30 mg/dL (7-18); eGFR NON AFRICAN AMERICAN 34 mL/min (90-120)
[2020-01-15 20:49] LABS: ALBUMIN 3.3 g/dL (3.4-5.0); ALKALINE PHOSPHATASE 77 U/L (30-120); ALT (SGPT) 81 U/L (10-68); BILIRUBIN - TOTAL 0.49 mg/dL (0.2-1.3); CKMB 5.9 U/L (0.0-3.6); CREATINE KINASE 245 UL (21-232); MAGNESIUM - SERUM 2.1 mg/dL (1.8-2.4); PROTEIN - SERUM 6.4 g/dL (6.4-8.2); TROPONIN-I < 0.017 ng/mL (0.000-0.060)
--- NOTE | 2020-01-15 21:00 | NUR ---
ERP INFORMED NITRO PASTE NOT GIVEN D/T LOW BP.
--- NOTE | 2020-01-15 23:20 | NUR ---
ADMIT TO ROOM 2120 FROM ER. ALERT/ORIENTED. AMBULATORY TO BED. ACCOMPANIED BY LIVESTOCK HANDLER. ADMISSION HISTORY AND ASSESSMENT COMPLETED. DAILY MEDS REVIEWED. TELEMETRY INITIATED. PT REPORTS PAIN LEVEL 3/10 NOW AND STATES FEELS MUCH BETTER. INSTRUCTED ON NPO AFTER MIDNIGHT UNTIL SEEN BY ROENTGENOLOGY TEACHER IN AM. PLAN OF CARE INITIATED. CALL LIGHT IN REACH.
[2020-01-15 23:30] LABS: CKMB 5.4 U/L (0.0-3.6); CREATINE KINASE 222 UL (21-232); TROPONIN-I 0.028 ng/mL (0.000-0.060)
--- NOTE | 2020-01-16 01:08 | NUR ---
PT C/O PAIN IN CHEST AREA /10 AND NAUSEA. MEDICATED WITH MORPHINE 4MG SIVP AND ZOFRAN 4MG SIVP GIVEN. SR PER TELEMETRY.
[2020-01-16 01:31] VITALS: BP 106/62; BMI 25.5
[2020-01-16 04:00] VITALS: BP 108/57
[2020-01-16 05:04] LABS: BASOPHILS 0.1 % (0-2); EOSINOPHILS 0.1 % (0-7); HEMATOCRIT 40.8 % (42.0-54.0); HEMOGLOBIN 13.3 g/dL (13.5-17.5); IMMATURE GRANULOCYTES 0.3 % (0-5); LYMPHOCYTES 6.2 % (15-50); MCH 32.5 pg (26.0-34.0); MCHC 32.6 g/dL (31.0-37.0); MCV 99.8 fL (80.0-100.0); MONOCYTES 9.3 % (2-11); PLATELET COUNT 147 10x3/uL (130-400); RBC 4.09 10x6/uL (4.20-6.10); WBC 13.1 10x3/uL (4.8-10.8)
[2020-01-16 05:25] LABS: CALC OSMOLALITY 284 mosm/kg (275-300); CALCIUM 8.7 mg/dL (8.5-10.1); CARBON DIOXIDE 23.9 mmol/L (21.0-32.0); CHLORIDE - SERUM 103 mmol/L (98-107); CREATINE KINASE 162 UL (21-232); CREATININE - SERUM 2.3 mg/dL (0.6-1.3); GLUCOSE 119 mg/dL (74-106); SODIUM 139 mmol/L (136-145); UREA NITROGEN 28 mg/dL (7-18); eGFR NON AFRICAN AMERICAN 31 mL/min (90-120)
[2020-01-16 05:30] LABS: TROPONIN-I < 0.017 ng/mL (0.000-0.060)
[2020-01-16 07:30] VITALS: BP 89/47
[2020-01-16 11:30] VITALS: BP 103/56
--- NOTE | 2020-01-16 13:29 | MORECARE ---
CASE MANAGEMENT DISCHARGE SUMMARY PATIENT: JEREMIE GALLARDO UNIT: [id number] ADM DATE: 01/15/20 AGE: 64 : 59 SEX: M ROOM/BED: D.2120 AUTHOR: SAJI CABRAL PHYSICIAN: REFERRING PHYSICIAN: GLENN STOLL MD DATE OF SERVICE: 01/16/20 Discharge Plan Patient Name: JEREMIE [facility]ALLARDO [facility] [facility] 1955 Planned Disposition: Anticipated Discharge Date: Discharge Date: Expected LOS: Initial Reviewer: [email or web address] Initial Review Date: 01/15/2020 Generated: 01/16/20 2:28 pm Patient Name: JEREMIE GALLARDO Page [phone] at 1329 All edits/amendments must be made on the electronic document DICTATION DATE: 01/16/20 1329 PHOTOGRAPHIC PRINTER: ALLYSON 01/16/20 1329 RPT#: [id number] DC DATE: STATUS: ADM IN [facility] [address] [place] [address] END OF REPORT
[2020-01-16 15:30] VITALS: BP 105/64
--- NOTE | 2020-01-16 16:22 | NUR ---
PT ARRIVED BACK FROM COMPLEX CASE MANAGER A/O X4 VSS. PT TO RETURN TO LAB IN AM. NPO AT MIDNIGHT. BED LOW CALL LIGHT WITHIN REACH. WILL CONTINUE TO MONITOR.
--- NOTE | 2020-01-16 17:28 | NUR ---
I have reviewed this patient and I concur with the Shift Assessment completed by the Licensed Practical Nurse today this shift.
--- NOTE | 2020-01-16 19:45 | NUR ---
REPORT RECIEVED AND INITIAL ROUNDS COMPLETED. PT RESTING IN BED GUARD AT BEDSIDE. IVF NS @ 125ML/HR INFUSING. BP HAS RUN LOW ALL DAY, WILL LEAVE FLUIDS INFUSING AND HOLD LOPRESSOR, UNLESS BP COMES UP. DENIES CHEST PAIN. WILL HOLD NITRO. STATES HE ACTUALLY FEELS BETTER TODAY THAN YESTERDAY. PT TEACHING ON BEING NPO AT MIDNIGHT AGAIN FOR A SECOND HEART CATH IN AM.
[2020-01-16 20:00] VITALS: BP 116/45
[2020-01-17 00:01] VITALS: BP 114/59
--- NOTE | 2020-01-17 02:43 | NUR ---
RESTING IN BED WITH NO DISTRESS. STAFF HOME THERAPY RN AT BEDSIDE. SR PER TELEMETRY.
--- NOTE | 2020-01-17 07:20 | NUR ---
RECIEVE REPORT. RESTING IN BED WITH EYES CLOSED. BILATERAL ANKLES SHACKLED. GAURD AT BEDSIDE. CONTINUE PLAN OF CARE AND SAFETY PRECAUTIONS.
[2020-01-17 08:34] VITALS: BP 94/62
[2020-01-17 12:00] VITALS: BP 106/62
--- NOTE | 2020-01-17 12:39 | MORECARE ---
CASE MANAGEMENT DISCHARGE SUMMARY PATIENT: JEREMIE GALLARDO UNIT: [id number] ADM DATE: 01/15/20 AGE: 64 : 59 SEX: M ROOM/BED: D.2120 AUTHOR: SAJI CABRAL PHYSICIAN: REFERRING PHYSICIAN: GLENN STOLL MD DATE OF SERVICE: 01/17/20 Discharge Plan Patient Name: JEREMIE GALLARDO Facility: [facility]:[place] : 1955 Planned Disposition: Anticipated Discharge Date: Discharge Date: Expected LOS: Initial Reviewer: [email or web address] Initial Review Date: 01/15/2020 Generated: 01/17/20 1:39 pm External Providers External Provider: OTHER-OTHER Next Contact Date: Service Request Date: Service Type: Resolution: Reviewer: Comments: Last DP export: 01/16/20 12:29 pm Patient Name: JEREMIE GALLARDO Page [phone] at 1239 All edits/amendments must be made on the electronic document DICTATION DATE: 01/17/[address] CLERK: ALLYSON 01/17/20 1239 RPT#: [id number] DC DATE: STATUS: ADM IN [facility] [address] [place] [address] END OF REPORT
[2020-01-17 13:54] VITALS: Ht 180.3 cm; Wt 83.0 kg
--- NOTE | 2020-01-17 14:25 | MORECARE ---
CASE MANAGEMENT DISCHARGE SUMMARY PATIENT: JEREMIE GALLARDO UNIT: [id number] ADM DATE: 01/15/20 AGE: 64 : 59 SEX: M ROOM/BED: D.2120 AUTHOR: SAJI CABRAL PHYSICIAN: REFERRING PHYSICIAN: GLENN STOLL MD DATE OF SERVICE: 01/17/20 Discharge Plan Patient Name: JEREMIE GALLARDO Facility: [facility]:[place] : 1955 Planned Disposition: Anticipated Discharge Date: Discharge Date: Expected LOS: Initial Reviewer: [email or web address] Initial Review Date: 01/15/2020 Generated: 01/17/20 3:24 pm External Providers External Provider: OTHER-OTHER Next Contact Date: Service Request Date: Service Type: Resolution: Reviewer: Comments: Last DP export: 01/17/20 11:39 am Patient Name: JEREMIE GALLARDO Page [phone] at 1425 All edits/amendments must be made on the electronic document DICTATION DATE: 01/17/20 1425 COOLING TOWER TECHNICIAN: ALLYSON 01/17/20 1425 RPT#: [id number] DC DATE: STATUS: ADM IN [facility] [address] [place] [address] END OF REPORT
--- NOTE | 2020-01-17 16:29 | NUR ---
RETURN TO ROOM VIA BED FROM KITCHEN HELP HANDYMAN. RT GROIN DRESSING C/D/I. FREE FROM HEMATOMA. FREE FROM BLEEDING. PULSE +2 BILATERALLY. BP-87/54, HR-62 SINUS PACED, O2-97% WITH 5L NC. DENIES ANY NEEDS AT THIS TIME. IV FLUIDS INFUSING ORDERED. CONTINUE PLAN OF CARE AND SAFETY PRECAUTIONS.
[2020-01-17 20:48] VITALS: BP 116/79
[2020-01-18 00:41] VITALS: BP 101/56
--- NOTE | 2020-01-18 03:34 | NUR ---
I have reviewed this patient and I concur with the Shift Assessment completed by the Licensed Practical Nurse today this shift.
[2020-01-18 03:53] VITALS: BP 98/70
[2020-01-18 06:46] LABS: CARBON DIOXIDE 24.7 mmol/L (21.0-32.0)
[2020-01-18 07:02] LABS: POTASSIUM - SERUM 4.7 mmol/L (3.5-5.1)
--- NOTE | 2020-01-18 07:20 | NUR ---
RECIEVE REPORT. RESTING IN BED WITH EYES CLOSED. GUARD AT BEDSIDE. RT LEG SHACKLED TO BEDRAIL. SINUS RYTHM ON TELEMETRY. RESPIRATIONS NONLABORED. CONTINUE PLAN OF CARE AND SAFETY PRECAUTIONS.
[2020-01-18 09:31] VITALS: BP 119/74
--- NOTE | 2020-01-18 09:47 | HP ---
PATIENT: JEREMIE TAVERA MEDICAL RECORD: [id number] ACCOUNT: [id number] LOCATION:[address] : 59 ADMISSION DATE: 01/15/20 PCP: No PCP HISTORY AND PHYSICAL EXAMINATION DIAGNOSES: 1. Unstable angina. 2. Coronary artery disease. 3. Previous multivessel percutaneous transluminal coronary angioplasty stent. 4. Cardiomyopathy. 5. Congestive heart failure. 6. Chronic systolic dysfunction. 7. Ventricular tachycardia. 8. ICD. 9. Hypertension. 10. Hyperlipidemia. HISTORY OF PRESENT ILLNESS: Mr. Tavera is a prisoner who presents to our institution with unstable angina as well as heart failure symptomatology. He has a history of a cardiomyopathy. He is followed by Dominic Connelly, it appears in [place]. He has a history of multivessel PTCA stent, 10 stents in the past. For the past week, he has had increasing episodes of chest pain. He has class IV angina just like that of his previous angina. He is not sure when his last cardiac intervention was. He thinks, it was over a year ago. His EKG has resting T-wave inversions in the lateral leads suggestive of ongoing ischemia. He does not know his last ejection fraction. He knows it is markedly decreased. He has been as well has class IV anginal symptomatology, worsening heart failure symptomatology, now at approximately class III heart failure symptomatology. He is on medical management for this with amiodarone, lisinopril, metoprolol and his heart rates in the 60s and his systolic blood pressure is in the 100 range, hence there is no room to continue improvement of medical management. PHYSICAL EXAMINATION: CONSTITUTIONAL/GENERAL APPEARANCE: Well nourished, well developed, appears stated age. EYES: Lids and conjunctivae noninjected. No discharge. No pallor. ENT: Lips within normal limit. No cyanosis. No pallor. NECK: Carotid arteries, bilateral normal upstroke. No bruits. No thrills. No jugular venous pressure or distention. CERVICAL LYMPH NODES: Nontender. Nonenlarged. THYROID: Not enlarged. No nodules. CARDIOVASCULAR: Precordial exam, nondisplaced. No heaves or pericardial thrills. Rate and rhythm, regular. Heart sounds, normal S1, normal S2. No S3, no gallop, no rub. Systolic murmur, not heard. Diastolic murmur, not heard. RESPIRATORY: Respiratory effort, unlabored. Normal curvature. No thoracic deformity. No chest wall tenderness. Percussion, resonant. Auscultation, clear. No wheezes, no rales, no rhonchi. ABDOMEN: Soft, nondistended, nontender. No abdominal pain, no vomiting and normal appetite. MUSCULOSKELETAL: No joint tenderness, normal gait, normal tone. SKIN: Warm and dry. OVERALL IMPRESSION: Congestive heart failure symptomatology, unstable angina. We will proceed with coronary angiography. Further care depends upon the HISTORY AND PHYSICAL [id number] JEREMIE TAVERA findings of the angiography. TRANSINT:[id number] Voice Confirmation ID: [id number] DOCUMENT ID: [id number] GLENN STOLL MD at 0947 CC: [id number] DICTATION DATE: 01/16/20 1022 BENEFITS CONSULTING ANALYST: 01/16/20 1223 ADM IN [facility] [address] [id number]
--- NOTE | 2020-01-18 12:59 | MORECARE ---
CASE MANAGEMENT DISCHARGE SUMMARY PATIENT: JEREMIE GALLARDO UNIT: [id number] ADM DATE: 01/15/20 AGE: 64 : 59 SEX: M [place] [place]: SAJI CABRAL PHYSICIAN: REFERRING PHYSICIAN: GLENN STOLL MD DATE OF SERVICE: 01/18/20 Discharge Plan Patient Name: JEREMIE [facility]ALLARDO [facility] [facility] 1955 Planned Disposition: Other Type of Facility Anticipated Discharge Date: 01/18/20 Discharge Date: Expected LOS: 3 Initial Reviewer: [email or web address] Initial Review Date: 01/15/2020 Generated: 01/18/20 1:59 pm Last DP export: 01/17/20 1:25 pm Patient Name: JEREMIE GALLARDO Page [phone] at 1259 All edits/amendments must be made on the electronic document DICTATION DATE: 01/18/20 1259 GOLD LAYER: ALLYSON 01/18/20 1259 RPT#: [id number] DC DATE: STATUS: ADM IN [facility] [address] [place] [address] END OF REPORT
--- NOTE | 2020-01-18 13:07 | MORECARE ---
CASE MANAGEMENT DISCHARGE SUMMARY PATIENT: JEREMIE GALLARDO UNIT: [id number] ADM DATE: 01/15/20 AGE: 64 : 59 SEX: M ROOM/BED: D.2120 AUTHOR: SAJI CABRAL PHYSICIAN: REFERRING PHYSICIAN: GLENN STOLL MD DATE OF SERVICE: 01/18/20 Discharge Plan Patient Name: JEREMIE GALLARDO Facility: [facility]:[place] : 1955 Planned Disposition: Other Type of Facility Anticipated Discharge Date: 01/18/20 Discharge Date: Expected LOS: 3 Initial Reviewer: [email or web address] Initial Review Date: 01/15/2020 Generated: 01/18/20 2:06 pm Comments DCP- Discharge Planning Updated by [email or web address]: Isacc Singh on 01/18/20 12:[address] Patient Name: JEREMIE GALLARDO Encounter No: [id number] : 1955 Primary Insurance: MEDICAID RESIDENTIAL PENDING Anticipated DC Date: 01-18-2020 Planned Disposition: Other Type of Facility External Planned Provider: [facility] DCP note: CM RECEIVED DISCHARGE ORDER, SPOKE TO PT AND GUARD IN ROOM. PT REPORTS HE IS IN [facility]IAL IN [place] AND WILL BE UP FOR [place] NEXT MONTH. PT WILL RETURN TO RESIDENTIAL TODAY. PT DENIES DISCHARGE NEEDS AND ASKED TO SPEAK TO THE DOCTOR BEFORE DISCHARGE. PT ASKED ABOUT HOW TO OBTAIN MEDICAL RECORDS, CM EXPLAINED HOW TO OBTAIN FROM MEDICAL RECORDS. GUARD STATES RESIDENTIAL TO ARRANGE TRANSPORT BACK TODAY. CM CALLED RESIDENTIAL, SPOKE TO JOSUÉ AND OBTAINED NUMBER FOR DOC TO DOC; DR. MOSES, . CM CALLED [employer] AND LEFT NUMBER FOR DR. STOLL FOR DOC TO DOC. NAVY SENIOR OFFICER NURSE NOTIFIED. NO FURTHER DISCHARGE NEEDS IDENTIFIED. Isacc Singh, CASE MANAGEMENT DCPIA - Discharge Planning Initial Assessment Updated by [email or web address]: Isacc Singh on 01/18/20 1:01 pm * Is the patient Alert and Oriented? Yes * How many steps to enter\exit or inside your home? NONE * PCP DR. MOSES, [facility] * Pharmacy [facility] * Preadmission Environment Other * Other Environment RESIDENTIAL * Facility Name [facility] * ADLs Independent * Equipment None * Other Equipment NONE * List name and contact numbers for known caregivers / representatives who currently or will assist patient after discharge: [facility], * Verbal permission to speak to the caregivers and representatives has been obtained from the patient. N/A * Community resources currently utilized None * Please name any agencies selected above. NONE * Additional services required to return to the preadmission environment? No * Can the patient safely return to the preadmission environment? Yes * Has this patient been hospitalized within the prior 30 days at any hospital? No Last DP export: 01/18/20 11:59 a Patient Name: JEREMIE GALLARDO Page [phone] at 1307 All edits/amendments must be made on the electronic document DICTATION DATE: 01/18/20 1306 CENTRAL OFFICE REPAIRER SUPERVISOR: ALLYSON 01/18/20 1306 RPT#: [id number] DC DATE: STATUS: ADM IN [facility] [address] [place] [address] END OF REPORT
[2020-01-18 13:43] VITALS: BP 114/91
--- NOTE | 2020-01-18 15:53 | NUR ---
ALERT AND ORIENTED X4. RESTING IN BED. DC LT FA IV TIP INTACT. REFUSE OXYGEN TREATMENT. GUARD AT BEDSIDE. DISCHARGE INSTRUCTIONS GIVEN VERBALLY AND WRITTEN. DISCHARGE PAPERS SIGNED ON CHART. PATIENT COPY GIVEN TO GUARD. [facility] TRANSPORTATION ARRIVE. ESCORT VIA WHEELCHAIR. REMAINS FREE FROM INJURY.
--- NOTE | 2020-01-18 17:04 | MORECARE ---
CASE MANAGEMENT DISCHARGE SUMMARY PATIENT: JEREMIE GALLARDO UNIT: [id number] ADM DATE: 01/15/20 AGE: 64 : 59 SEX: M ROOM/BED: D.2120 AUTHOR: SAJI CABRAL PHYSICIAN: REFERRING PHYSICIAN: GLENN STOLL MD DATE OF SERVICE: 01/18/20 Discharge Plan Patient Name: JEREMIE GALLARDO Facility[facility]:[place] : 1955 Planned Disposition: Other Type of Facility Anticipated Discharge Date: 01/18/20 Discharge Date: 01/18/2020 Expected LOS: 3 Initial Reviewer: [email or web address] Initial Review Date: 01/15/2020 Generated: 01/18/20 6:03 pm Comments DCP- Discharge Planning Updated by [email or web address]: Isacc Jasso on 01/18/20 3:[address] Patient Name: JEREMIE GALLARDO Encounter No: [id number] : 1955 Primary Insurance: MEDICAID RETIREMENT PENDING Anticipated DC Date: 01-18-2020 Planned Disposition: Other Type of Facility External Planned Provider: [facility] note: CM RECEIVED DISCHARGE ORDER, SPOKE TO PT AND GUARD IN ROOM. PT REPORTS HE IS IN RETIREMENT IN [place] AND WILL BE UP FOR [place] NEXT MONTH. PT WILL RETURN TO RETIREMENT TODAY. PT DENIES DISCHARGE NEEDS AND ASKED TO SPEAK TO THE DOCTOR BEFORE DISCHARGE. PT ASKED ABOUT HOW TO OBTAIN MEDICAL RECORDS, CM EXPLAINED HOW TO OBTAIN FROM MEDICAL RECORDS. GUARD STATES RETIREMENT TO ARRANGE TRANSPORT BACK TODAY. CM CALLED RETIREMENT, SPOKE TO JOSUÉ AND OBTAINED NUMBER FOR DOC TO DOC; DR. MOSES, . CM CALLED AUTOMOTIVE SOFTWARE ENGINEER AND LEFT NUMBER FOR DR. STOLL FOR DOC TO DOC. PATIENT FINANCIAL SERVICES MANAGER NURSE NOTIFIED. NO FURTHER DISCHARGE NEEDS IDENTIFIED. Isacc Jasso, CASE MANAGEMENT Appended by Isacc Jasso on 01/18/2020 16:57 CDT: PT QUALIFIED FOR PORTABLE OXYGEN. JONATHAN SPOKE TO MRS. GOMEZ AT [facility], , WHO ADVISED THAT PT WILL HAVE TO RETURN VIA AMBULANCE THEIR VANS ARE NOT OXYGEN CAPABLE. OXYGEN WILL BE PROVIDED UPON RETURN TO RETIREMENT AND SEND OXYGEN TESTING IN DISCHARGE PAPERS. NURSE NOTIFIED BY CM. CM LATER NOTIFIED BY NURSE THAT PT REFUSED OXYGEN. CM NOTIFIED CM DIRECTOR AND MRS GOMEZ AT THE RETIREMENT UNIT WHO ADVISED THAT DR. MOSES INSTRUCTED TO SEND THE PT BACK VIA RETIREMENT VAN; DIRECTOR ARAM AGREED THAT PT HAS A RIGHT TO REFUSE OXYGEN. PT AND GUARD AT BEDSIDE NOTIFIED. BEDSIDE NURSE AND PATIENT FINANCIAL SERVICES MANAGER NURSE NOTIFIED. ISACC JASSO, CASE MANAGEMENT DCPIA - Discharge Planning Initial Assessment Updated by [email or web address]: Isacc Jasso on 01/18/20 1:01 pm * Is the patient Alert and Oriented? Yes * How many steps to enter\exit or inside your home? NONE * PCP DR. MOSES, [facility] * Pharmacy [facility] * Preadmission Environment Other * Other Environment RETIREMENT * Facility Name [facility] * ADLs Independent * Equipment None * Other Equipment NONE * List name and contact numbers for known caregivers / representatives who currently or will assist patient after discharge: [facility], * Verbal permission to speak to the caregivers and representatives has been obtained from the patient. N/A * Community resources currently utilized None * Please name any agencies selected above. NONE * Additional services required to return to the preadmission environment? No * Can the patient safely return to the preadmission environment? Yes * Has this patient been hospitalized within the prior 30 days at any hospital? No Last DP export: 01/18/20 12:07 p Patient Name: JEREMIE GALLARDO Page [phone] at 1704 All edits/amendments must be made on the electronic document DICTATION DATE: 01/18/201702 POWER AND RECOVERY SUPERINTENDENT: ALLYSON 01/18/201702 RPT#: [id number] DC DATE:01/18/20 STATUS: DIS IN [facility] [address] [place] [address] END OF REPORT
[2020-01-19] MEDS ORDERED: ISOSORBIDE MONO60 M1 PO (12:37)
[2020-01-19] MEDS ORDERED: RANEXA500 MG PO (12:48)
== END 2020-01-18 15:55 | DRG 246 ==
LOC: D.ER 19:16 → D.M2 21:44 → D.SDCHOLD 01-18 12:59 → D.M2 01-18 12:59
PROVIDERS: Emergency Medicine; ADMIT Internal Medicine Interventional Cardiology; ATTEND Internal Medicine Interventional Cardiology
PROC: 4A023N7 Measurement of Cardiac Sampling and Pressure, Left Heart, Percutaneous Approach (ICD-10-PCS; 2020-01-16)
PROC: B2111ZZ Fluoroscopy of Multiple Coronary Arteries using Low Osmolar Contrast (ICD-10-PCS; 2020-01-16)
PROC: B2151ZZ Fluoroscopy of Left Heart using Low Osmolar Contrast (ICD-10-PCS; 2020-01-16)
PROC: 027035Z Dilation of Coronary Artery, One Artery with Two Drug-eluting Intraluminal Devices, Percutaneous Approach (ICD-10-PCS; principal; 2020-01-16 13:57)
PROC: 4A033BC Measurement of Arterial Pressure, Coronary, Percutaneous Approach (ICD-10-PCS; 2020-01-17)
PROC: 027135Z Dilation of Coronary Artery, Two Arteries with Two Drug-eluting Intraluminal Devices, Percutaneous Approach (ICD-10-PCS; 2020-01-17 15:15)
DX: I25.110 Atherosclerotic heart disease of native coronary artery with unstable angina pectoris (principal); I50.22 Chronic systolic (congestive) heart failure; I47.2 Ventricular tachycardia; I11.0 Hypertensive heart disease with heart failure; E78.5 Hyperlipidemia, unspecified; I25.5 Ischemic cardiomyopathy

== ENCOUNTER 2020-01-19 11:15 | Emergency (ER) | payer OTHER ==
[~2020-01-19] VITALS: Ht 180.3 cm; Wt 86.4 kg
--- NOTE | ~2020-01-19 | CN ---
PATIENT NAME:JEREMIE GALLARDO MEDICAL RECORD: [id number] : 59 LOCATION:. ADMIT DATE: ACCOUNT: [id number] CONSULTING PHYSICIAN: GLENN STOLL MD REFERRING PHYSICIAN: TENNILLE SOTO MD DATE OF CONSULTATION: 01/19/2020 ADMITTING DIAGNOSES: 1. Angina. 2. Coronary artery disease. 3. Recent 3-vessel percutaneous transluminal coronary angioplasty stent. 4. Cardiomyopathy. 5. Hypertension. 6. Hyperlipidemia. HISTORY OF PRESENT ILLNESS: Mr. Gallardo presents with recurrent chest pain. He underwent 3-vessel PTCA stent, there is nothing else that needs fixing on him. He was still having chest pain yesterday when he went back to jail. He has continued to have pain. His EKG is with no changes. PHYSICAL EXAMINATION: CONSTITUTIONAL/GENERAL APPEARANCE: Well nourished, well developed, appears stated age. EYES: Lids and conjunctivae noninjected. No discharge. No pallor. ENT: Lips within normal limit. No cyanosis. No pallor. NECK: Carotid arteries, bilateral normal upstroke. No bruits. No thrills. No jugular venous pressure or distention. CERVICAL LYMPH NODES: Nontender. Nonenlarged. THYROID: Not enlarged. No nodules. CARDIOVASCULAR: Precordial exam, nondisplaced. No heaves or pericardial thrills. Rate and rhythm, regular. Heart sounds, normal S1, normal S2. No S3, no gallop, no rub. Systolic murmur, not heard. Diastolic murmur, not heard. RESPIRATORY: Respiratory effort, unlabored. Normal curvature. No thoracic deformity. No chest wall tenderness. Percussion, resonant. Auscultation, clear. No wheezes, no rales, no rhonchi. ABDOMEN: Soft, nondistended, nontender. No abdominal pain, no vomiting and normal appetite. MUSCULOSKELETAL: No joint tenderness, normal gait, normal tone. SKIN: Warm and dry. REVIEW OF SYSTEMS: The patient reports easy bruising but reports no swollen glands. The patient reports no fever, no night sweats, no significant weight gain, no significant weight loss. No significant exercise tolerance. The patient reports no dry eyes, no irritation, no vision change. Patient reports no difficulty hearing and no ear pain. Patient reports no frequent nose bleeds or nose and sinus problems. Patient reports on arm pain on exertion. No shortness of breath while lying down. No history of heart murmur. Patient reports no cough, no wheezing or coughing up blood. Patient reports no abdominal pain, no vomiting. Normal appetite. No diarrhea and not vomiting blood. No nausea and no constipation. Patient reports no incontinence. No difficulty urinating. No hematuria. No increased frequency. Patient reports no muscle aches. No weakness, no arthralgias, no back pain. No swelling of the extremities. Patient reports no abnormal mole, no jaundice, no rashes. Reports no loss of consciousness. No weakness and no numbness. No seizures, dizziness, or headaches. The patient reports no depression, no sleep disturbance, feeling CONSULT REPORT [id number] JEREMIE GALLARDO safe in a relationship and no alcohol abuse. Patient reports on fatigue. Reports no runny nose or sinus pressure. No itching, no hives, and no frequent sneezing. OVERALL IMPRESSION: Continued anginal pain, at this time it is medical management. We will start with Imdur 60 mg b.i.d. No need for repeat cardiac intervention at this time. TRANSINT:[id number] Voice Confirmation ID: [id number] DOCUMENT ID: [id number] GLENN STOLL MD CC: [id number] DICTATION DATE: 01/19/20 1140 KNIFE SETTER ASSEMBLER: 01/19/20 1405 [facility] [address] [id number]
[~2020-01-19 11:15] MED LIST changes: +ACETAMINOPHEN325 MG PO; +CLARITIN 10 MG10 MG PO; +COUMADIN2 MG PO; +FOLIC ACID1 MG PO; +LIPITOR20 MG PO
[2020-01-19 11:30] VITALS: Ht 180.3 cm; Wt 86.4 kg
[2020-01-19 11:40] LABS: BASOPHILS 0.2 % (0-2); EOSINOPHILS 0.5 % (0-7); HEMATOCRIT 43.1 % (42.0-54.0); HEMOGLOBIN 14.4 g/dL (13.5-17.5); IMMATURE GRANULOCYTES 0.2 % (0-5); LYMPHOCYTES 6.9 % (15-50); MCH 32.4 pg (26.0-34.0); MCHC 33.4 g/dL (31.0-37.0); MCV 97.1 fL (80.0-100.0); MEAN PLATELET VOLUME 10.5 fL (7.4-10.4); MONOCYTES 12.5 % (2-11); NEUTROPHILS 79.7 % (40-80); PLATELET COUNT 168 10x3/uL (130-400); RBC 4.44 10x6/uL (4.20-6.10); RDW 13.8 % (11.5-14.5); WBC 12.9 10x3/uL (4.8-10.8)
[2020-01-19 11:54] LABS: APTT 30.7 SECONDS (22.8-39.4); INR 1.06 (0.85-1.17); PROTIME 13.8 SECONDS (11.6-15.0)
[2020-01-19 11:59] LABS: CALC OSMOLALITY 281 mosm/kg (275-300); CALCIUM 9.3 mg/dL (8.5-10.1); CHLORIDE - SERUM 102 mmol/L (98-107); CREATININE - SERUM 2.3 mg/dL (0.6-1.3); GLUCOSE 89 mg/dL (74-106); POTASSIUM - SERUM 4.7 mmol/L (3.5-5.1); SODIUM 138 mmol/L (136-145); UREA NITROGEN 31 mg/dL (7-18); eGFR NON AFRICAN AMERICAN 31 mL/min (90-120)
[2020-01-19 12:19] LABS: ALBUMIN 3.1 g/dL (3.4-5.0); ALKALINE PHOSPHATASE 80 U/L (30-120); ALT (SGPT) 66 U/L (10-68); BILIRUBIN - TOTAL 1.22 mg/dL (0.2-1.3); CKMB 165.8 U/L (0.0-3.6); MAGNESIUM - SERUM 2.1 mg/dL (1.8-2.4); PROTEIN - SERUM 6.8 g/dL (6.4-8.2)
[2020-01-19 12:21] LABS: CREATINE KINASE 4255 UL (21-232)
[2020-01-19 12:23] LABS: TROPONIN-I 0.259 ng/mL (0.000-0.060)
[2020-01-19] MEDS ORDERED: ISOSORBIDE MONO60 M1 PO (12:37)
[2020-01-19] MEDS ORDERED: RANEXA500 MG PO (12:48)
[2020-01-19 14:42] VITALS: BP 105/53
== END 2020-01-19 18:33 ==
LOC: D.ER 11:15
PROVIDERS: Emergency Medicine
DX: I25.119 Atherosclerotic heart disease of native coronary artery with unspecified angina pectoris (principal); R07.9 Chest pain, unspecified; I10 Essential (primary) hypertension; I25.2 Old myocardial infarction; Z95.0 Presence of cardiac pacemaker; K21.9 Gastro-esophageal reflux disease without esophagitis